=== PATIENT | male | born 1990 | race Two or more races ===

== ENCOUNTER 2016-11-30 06:20 | Emergency (ER) | payer SELFPAY ==
[~2016-11-30] VITALS: Ht 185.4 cm; Wt 90.7 kg
[2016-11-30 09:22] LABS: Urine Blood Negative /uL (Negative); Urine Color Yellow (Yellow); Urine Glucose Normal (Normal); Urine Mucus FEW (None Seen); Urine Nitrite Negative (Negative); Urine RBC 3 /hpf (0 - 3); Urine pH 5.5 (5.0-8.0)
[2016-11-30 09:51] LABS: Urine Bilirubin Negative (Negative); Urine Ketone 2+ (Negative)
[2016-11-30 10:53] LABS: Basophils # (auto) 0 uL; Basophils % (auto) 0.4 % (0.0-2.0); CONDITION Y; Eosinophils # (auto) 0.2 uL; Eosinophils % (auto) 3.3 % (0.0-7.0); Hemoglobin 15.3 g/dL (13.5-17.5); Lymphocytes # (auto) 1.1 uL; Lymphocytes % (auto) 23.7 % (10.0-50.0); Mean Corpuscular Hemoglobin 29.5 pg (28.0-32.0); Mean Corpuscular Hgb Conc. 33.9 g/dL (32.0-36.0); Mean Corpuscular Volume 87.1 fL (80.0-100.0); Mean Platelet Volume 10.4 fL (7.4-10.4); Monocytes # (auto) 0.5 uL; Monocytes % (auto) 9.9 % (0.0-12.0); Neutrophils # (auto) 2.9 uL; Neutrophils % (auto) 62.7 % (37.0-80.0); Platelet Count (auto) 198 10^3/uL (140-450); Red Cell Distribution Width 14.6 % (11.6-16.0); White Blood Cell 4.7 10^3/uL (4.4-10.8)
[2016-11-30 11:07] LABS: Albumin 3.5 g/dL (3.4-5.0); BUN/Creatinine Ratio 19.8; Calcium 8.3 mg/dL (8.5-10.1); Potassium 3.4 mmol/L (3.5-5.1)
[2016-11-30 11:09] LABS: Bilirubin, Total 0.8 mg/dL (0.2-1.0); Total Protein 6.9 g/dL (6.4-8.2)
[2016-11-30] MEDS: POTASSIUM CHL 10% (20 MEQ/15ML) ORAL SOLN PO ONE ×2 (12:05→12:19)
[2016-11-30 13:56] VITALS: BP 129/68
== END 2016-11-30 16:07 | disposition left against medical advice (07) ==
LOC: EDBD 06:20 → ER 06:31
DX: M20.41 Other hammer toe(s) (acquired), right foot (principal); M20.42 Other hammer toe(s) (acquired), left foot; M79.89 Other specified soft tissue disorders; F15.10 Other stimulant abuse, uncomplicated; F12.10 Cannabis abuse, uncomplicated; B35.3 Tinea pedis; Z03.89 Encounter for observation for other suspected diseases and conditions ruled out; F17.210 Nicotine dependence, cigarettes, uncomplicated; J45.909 Unspecified asthma, uncomplicated; Z59.0 Homelessness
CPT/HCPCS: 36415; 73630; 74000; 80053; 80307; 81001; 85025